=== PATIENT | male | born 1950 | race Caucasian/White ===

== ENCOUNTER 2021-05-24 22:10 | Inpatient (IN) ==
[2021-05-25] MEDS ORDERED: NS 0.9% 1000 ml BAG 1,000 ML IV ONE ×2 (01:00→02:43)
[2021-05-25] MEDS ORDERED: Levofloxacin 750 MG IVPREMIX 750 MG/150 ML BAG IVPB ONE (01:03)
[2021-05-25 02:09] LABS: Hematocrit 34 % (42-52); Hemoglobin 11.5 g/dL (14.0-18.0); Mean Corpuscular HGB Conc 34 g/dL (31-36); Mean Corpuscular Hemoglobin 32 pg (27-31); Mean Corpuscular Volume 94 fL (80-94); Mean Platelet Volume 8.1 fL (7.4-10.4); Platelet Count 178 10^3/uL (150-450); Red Blood Count 3.63 10^6 /uL (4.18-5.48); Red Cell Distribution Width 13 % (10-15); White Blood Count 14.1 10^3/uL (3.5-10.8)
[2021-05-25 02:14] LABS: Urine Appearance Cloudy; Urine Bilirubin Negative (Negative); Urine Blood 2+ (Negative); Urine Color Yellow; Urine Glucose Negative (Negative); Urine Ketones Negative (Negative); Urine Nitrite Negative (Negative); Urine Protein Negative (Negative); Urine Specific Gravity 1.009 (1.002-1.030); Urine Urobilinogen Negative (Negative)
[2021-05-25 02:16] LABS: Urine Bacteria 2+ (Absent); Urine Red Blood Cell 2+(6-10/hpf) (Absent); Urine White Blood Cell 3+(>20/hpf) (Absent)
[2021-05-25 02:26] LABS: ALT 49 U/L (7-52); AST 57 U/L (13-39); Albumin 3.3 g/dL (3.2-5.2); Albumin/Globulin Ratio 1.7 (1-3); Alkaline Phosphatase 61 U/L (35-149); Anion Gap 6 mmol/L (2-11); Blood Urea Nitrogen 23 mg/dL (6-24); C Reactive Protein 100.59 mg/L (<8.01); CO2 Carbon Dioxide 21 mmol/L (22-32); Calcium 7.9 mg/dL (8.6-10.3); Chloride 108 mmol/L (101-111); Creatine Kinase 134 U/L (10-223); Glucose 128 mg/dL (70-100); Potassium 3.8 mmol/L (3.5-5.0); Sodium 135 mmol/L (135-145); Total Protein 5.3 g/dL (6.4-8.9)
[2021-05-25 02:32] LABS: RBC Morphology Normal (Normal)
[2021-05-25 02:33] LABS: ABS Lymphocytes 0.6 10^3/ul (1.0-4.8); ABS Monocytes 0.9 10^3/ul (0-0.8); ABS Neutrophils 12.5 10^3/ul (1.5-7.7); Eosinophil % 0.1 %
[2021-05-25 02:42] LABS: Troponin I 0.03 ng/mL (<0.03)
[2021-05-25] MEDS ORDERED: Lactated Ringers 1000 ml BAG 1,000 ML IV ONE (03:50)
[2021-05-25] MEDS ORDERED: Lactated Ringers 1000 ml BAG 2,000 ML IV ONE (03:51)
[2021-05-25] MEDS ORDERED: Ondansetron 4 mg VIAL 2 MG/ML 2 ml VIAL IV PRN (04:24)
[2021-05-25] MEDS ORDERED: Iodixanol (CONTRAST) 320 MG/ML 100 ML SDV IV ONE (04:34)
[2021-05-25] MEDS ORDERED: cefTRIAXone 2 GM ADDV.VIAL 2 GM in NS 0.9% 100 ml BAG 100 ML IV SCH (05:00)
[2021-05-25] MEDS: Enoxaparin 40 MG/0.4 ML SYR SUBCUT SCH (05:43)
[2021-05-25 06:20] LABS: Urine Appearance Cloudy; Urine Bilirubin Negative (Negative); Urine Blood 2+ (Negative); Urine Color Yellow; Urine Glucose Negative (Negative); Urine Ketones Negative (Negative); Urine Nitrite Negative (Negative); Urine Protein Negative (Negative); Urine Specific Gravity 1.009 (1.002-1.030); Urine Urobilinogen Negative (Negative)
[2021-05-25 06:22] LABS: Urine Bacteria 2+ (Absent); Urine Red Blood Cell 2+(6-10/hpf) (Absent); Urine White Blood Cell 3+(>20/hpf) (Absent)
[2021-05-25 07:07] LABS: Rapid COVID-19 Molecular Undetected (Undetected)
[2021-05-25] MEDS ORDERED: NS 0.9% 500 ml BAG 500 ML IV ONE (11:23)
[2021-05-25] MEDS ORDERED: NS 0.9% 1000 ml BAG 1,000 ML IV SCH (11:30)
[2021-05-25] MEDS ORDERED: Norepinephrine 16MCG/ML IVPRE 4,000 MCG/250 ML BAG IV ONE (12:29)
[2021-05-25] MEDS ORDERED: Norepinephrine 16MCG/ML IVPRE 4,000 MCG/250 ML BAG IV SCH (13:00)
[2021-05-25] MEDS ORDERED: Piperacillin/Tazobac ADVAN 3.375 GM in NS 0.9% 100 ml BAG 100 ML IV ONE (16:51)
[2021-05-25] MEDS ORDERED: Zosyn per Pharmacy NOTE FOLLOW UP SCH (17:00)
[2021-05-25] MEDS ORDERED: Lactated Ringers 1000 ml BAG 1,000 ML IV SCH (17:00)
[2021-05-25] MEDS: ZOSYN 3.375 GM Q8H per EXTENDED INFUSION IV SCH (21:44)
[2021-05-26 04:48] LABS: ABS Lymphocytes 0.6 10^3/ul (1.0-4.8); ABS Monocytes 0.6 10^3/ul (0-0.8); ABS Neutrophils 5.2 10^3/ul (1.5-7.7); Eosinophil % 0.6 %; Hematocrit 37 % (42-52); Hemoglobin 12.6 g/dL (14.0-18.0); Lymphocyte % 9.4 %; Mean Corpuscular HGB Conc 34 g/dL (31-36); Mean Corpuscular Hemoglobin 32 pg (27-31); Mean Corpuscular Volume 96 fL (80-94); Mean Platelet Volume 8.4 fL (7.4-10.4); Platelet Count 167 10^3/uL (150-450); Red Blood Count 3.88 10^6 /uL (4.18-5.48); Red Cell Distribution Width 13 % (10-15); White Blood Count 6.5 10^3/uL (3.5-10.8)
[2021-05-26 05:05] LABS: Calcium 7.9 mg/dL (8.6-10.3); Magnesium 1.9 mg/dL (1.9-2.7); Phosphorus 2.7 mg/dL (2.5-5.0); Potassium 4.1 mmol/L (3.5-5.0); eGFR CKD-EPI 73.9 (>60)
[2021-05-26] MEDS: ZOSYN 3.375 GM Q8H per EXTENDED INFUSION IV SCH ×2 (05:16→14:06)
[2021-05-26] MEDS: Enoxaparin 40 MG/0.4 ML SYR SUBCUT SCH (08:22)
[2021-05-26] MEDS ORDERED: Furosemide 20 mg/2 ml IV VIAL IV SLOW PU ONE (13:10)
[2021-05-27] MEDS: ZOSYN 3.375 GM Q8H per EXTENDED INFUSION IV SCH ×2 (05:51)
[2021-05-27] MEDS ORDERED: diPHENhydraMINE 25 mg TAB PO ONE (09:34)
[2021-05-27] MEDS ORDERED: Clotrimazole 1% CREAM 45 GM TOPICAL PRN (09:34)
[2021-05-27] MEDS: Enoxaparin 40 MG/0.4 ML SYR SUBCUT SCH (09:56)
[2021-05-27] MEDS: cefTRIAXone 1 gm/50 mL NS BAG 1 GM/50 ML BAG IVPB SCH (09:57)
[2021-05-27] MEDS ORDERED: diPHENhydraMINE 25 mg TAB PO PRN (20:27)
[2021-05-28 05:12] LABS: ABS Basophils 0.1 10^3/ul (0-0.2); ABS Eosinophils 0.3 10^3/ul (0-0.6); ABS Lymphocytes 1.4 10^3/ul (1.0-4.8); ABS Monocytes 0.7 10^3/ul (0-0.8); ABS Neutrophils 3.9 10^3/ul (1.5-7.7); Hematocrit 35 % (42-52); Hemoglobin 11.9 g/dL (14.0-18.0); Lymphocyte % 22.3 %; Mean Corpuscular HGB Conc 34 g/dL (31-36); Mean Corpuscular Hemoglobin 32 pg (27-31); Mean Corpuscular Volume 94 fL (80-94); Mean Platelet Volume 8.4 fL (7.4-10.4); Platelet Count 230 10^3/uL (150-450); Red Blood Count 3.69 10^6 /uL (4.18-5.48); Red Cell Distribution Width 13 % (10-15); White Blood Count 6.4 10^3/uL (3.5-10.8)
[2021-05-28 05:26] LABS: Potassium 3.9 mmol/L (3.5-5.0); eGFR CKD-EPI 94.6 (>60)
[2021-05-28] MEDS: cefTRIAXone 1 gm/50 mL NS BAG 1 GM/50 ML BAG IVPB SCH (10:54)
[2021-05-28] MEDS: Enoxaparin 40 MG/0.4 ML SYR SUBCUT SCH (10:54)
[2021-05-28 12:17] VITALS: BP 117/65
== END 2021-05-28 11:55 | disposition home or self-care (01) | DRG 871 ==
LOC: ED 22:10 → SUATTDRO 05-25 04:24 → EDHOLD 05-25 04:24 → ICU 05-25 13:36 → MED 05-27 22:09
PROVIDERS: ADMIT Student in an Organized Health Care Education/Training Program; ATTEND Internal Medicine

== ENCOUNTER 2021-07-04 12:28 | Inpatient (IN) ==
[2021-07-04] MEDS ORDERED: Lactated Ringers 1000 ml BAG IV.FLUID IV ONE (13:51)
[2021-07-04 14:46] LABS: ABS Lymphocytes 0.2 10^3/ul (1.0-4.8); ABS Monocytes 0.2 10^3/ul (0-0.8); ABS Neutrophils 9.1 10^3/ul (1.5-7.7); Eosinophil % 0.2 %; Hematocrit 40 % (42-52); Hemoglobin 13.3 g/dL (14.0-18.0); Lymphocyte % 2.4 %; Mean Corpuscular HGB Conc 34 g/dL (31-36); Mean Corpuscular Hemoglobin 32 pg (27-31); Mean Corpuscular Volume 95 fL (80-94); Mean Platelet Volume 8.6 fL (7.4-10.4); Platelet Count 143 10^3/uL (150-450); Red Blood Count 4.15 10^6 /uL (4.18-5.48); Red Cell Distribution Width 14 % (10-15); White Blood Count 9.6 10^3/uL (3.5-10.8)
[2021-07-04 14:56] LABS: ALT 42 U/L (7-52); Albumin 3.8 g/dL (3.2-5.2); Albumin/Globulin Ratio 1.7 (1-3); Alkaline Phosphatase 70 U/L (35-149); Blood Urea Nitrogen 20 mg/dL (6-24); C Reactive Protein 90.05 mg/L (<8.01); CO2 Carbon Dioxide 21 mmol/L (22-32); Calcium 8.7 mg/dL (8.6-10.3); Chloride 103 mmol/L (101-111); Globulin 2.3 g/dL (2-4); Glucose 104 mg/dL (70-100); Sodium 133 mmol/L (135-145); Total Protein 6.1 g/dL (6.4-8.9); eGFR CKD-EPI 71.6 (>60)
[2021-07-04 15:00] LABS: Troponin I 0.03 ng/mL (<0.03)
[2021-07-04 15:01] LABS: AST 46 U/L (13-39); Activated Partial Thrombo Time 28.7 seconds (26.0-38.0); Anion Gap 9 mmol/L (2-11); INR 1.28 (0.86-1.15)
[2021-07-04 17:32] LABS: Urine Appearance Cloudy; Urine Bilirubin Negative (Negative); Urine Blood 2+ (Negative); Urine Color Amber; Urine Glucose Negative (Negative); Urine Ketones Negative (Negative); Urine Nitrite Positive (Negative); Urine Protein 1+(30 mg/dL) (Negative); Urine Specific Gravity 1.011 (1.002-1.030); Urine Urobilinogen Negative (Negative)
[2021-07-04] MEDS ORDERED: Sulfamethoxazole/Trimeth IV 0 MG in D5W 500 ml BAG 500 ML IVPB ONE (17:39)
[2021-07-04 18:12] LABS: Urine Bacteria 3+ (Absent); Urine Red Blood Cell 2+(6-10/hpf) (Absent); Urine Squamous Epithelial Cell Present (Absent); Urine White Blood Cell 3+(>20/hpf) (Absent)
[2021-07-04] MEDS ORDERED: TRIMETH IVPB ONE (19:22)
[2021-07-04] MEDS ORDERED: D5W IVPB ONE (19:22)
[2021-07-04] MEDS ORDERED: SULFAMETHOXAZOLE IVPB ONE (19:22)
[2021-07-04] MEDS ORDERED: Sulfamethoxazole/Trimeth IV 160 MG in D5W 250 ml BAG 250 ML IVPB ONE (20:30)
[2021-07-04] MEDS ORDERED: Lactated Ringers 1000 ml BAG 1,000 ML IV SCH (23:00)
[2021-07-04 23:15] LABS: Troponin I 0.05 ng/mL (<0.03)
[2021-07-04] MEDS ORDERED: Lactated Ringers 1000 ml BAG 1,000 ML IV ONE (23:44)
[2021-07-05] MEDS ORDERED: Lactated Ringers 1000 ml BAG 1,000 ML IV ONE ×2 (04:08→05:27)
[2021-07-05 04:09] LABS: Magnesium 1.7 mg/dL (1.9-2.7)
[2021-07-05] MEDS ORDERED: Magnesium Sulfate IV 3 GM in NS 0.9% 100 ml BAG 100 ML IVPB ONE (04:12)
[2021-07-05] MEDS: Enoxaparin 40 MG/0.4 ML SYR SUBCUT SCH (05:13)
[2021-07-05 06:24] LABS: Hematocrit 33 % (42-52); Hemoglobin 11.4 g/dL (14.0-18.0); Mean Corpuscular HGB Conc 34 g/dL (31-36); Mean Corpuscular Hemoglobin 32 pg (27-31); Mean Corpuscular Volume 94 fL (80-94); Mean Platelet Volume 9.3 fL (7.4-10.4); Platelet Count 90 10^3/uL (150-450); Red Blood Count 3.56 10^6 /uL (4.18-5.48); Red Cell Distribution Width 14 % (10-15); White Blood Count 7.6 10^3/uL (3.5-10.8)
[2021-07-05 06:46] LABS: Anion Gap 6 mmol/L (2-11); Blood Urea Nitrogen 19 mg/dL (6-24); CO2 Carbon Dioxide 23 mmol/L (22-32); Chloride 102 mmol/L (101-111); Glucose 142 mg/dL (70-100); Potassium 3.5 mmol/L (3.5-5.0); Sodium 131 mmol/L (135-145); eGFR CKD-EPI 74.7 (>60)
[2021-07-05 07:06] LABS: Troponin I 0.05 ng/mL (<0.03)
[2021-07-05] MEDS: cefTRIAXone 2 GM ADDV.VIAL 2 GM in NS 0.9% 100 ml BAG 100 ML IV SCH (08:03)
[2021-07-05] MEDS ORDERED: cefTRIAXone 1 gm/50 mL NS BAG 1 GM/50 ML BAG IVPB SCH (09:00)
[2021-07-05 09:35] LABS: Ferritin 247.1 ng/mL (24-336)
[2021-07-05 09:38] LABS: Folate 9.65 ng/mL (5.90-24.80)
[2021-07-05 09:39] LABS: Vitamin B12 257 pg/mL (180-914)
[2021-07-05] MEDS: Iohexol 300 (CONTRAST) 10 ML SDV IV ONE ×2 (16:02→16:03)
[2021-07-05] MEDS ORDERED: Furosemide 40 mg/4 ml IV VIAL IV SLOW PU ONE (20:39)
[2021-07-05] MEDS ORDERED: Albuterol/Ipratropium NEB.SOL (2.5/0.5 MG) 3 ML NEB.SOLN INH ONE (20:40)
[2021-07-05] MEDS ORDERED: Furosemide 40 mg/4 ml IV VIAL ONE (20:44)
[2021-07-05 21:17] LABS: Hematocrit 38 % (42-52); Hemoglobin 12.8 g/dL (14.0-18.0); Mean Corpuscular HGB Conc 34 g/dL (31-36); Mean Corpuscular Hemoglobin 32 pg (27-31); Mean Corpuscular Volume 94 fL (80-94); Mean Platelet Volume 9.1 fL (7.4-10.4); Platelet Count 117 10^3/uL (150-450); Red Blood Count 4.01 10^6 /uL (4.18-5.48); Red Cell Distribution Width 14 % (10-15); White Blood Count 8.1 10^3/uL (3.5-10.8)
[2021-07-05 21:39] LABS: Albumin 3.4 g/dL (3.2-5.2); Albumin/Globulin Ratio 1.7 (1-3); Calcium 8.2 mg/dL (8.6-10.3); Potassium 4.2 mmol/L (3.5-5.0); Total Bilirubin 1.2 mg/dL (0.2-1.0); Total Protein 5.4 g/dL (6.4-8.9); eGFR CKD-EPI 63.9 (>60)
[2021-07-05 21:46] LABS: ABS Lymphocytes 0.7 10^3/ul (1.0-4.8); ABS Monocytes 0.6 10^3/ul (0-0.8); ABS Neutrophils 6.7 10^3/ul (1.5-7.7); Lymphocyte % 9.1 %
[2021-07-05 21:58] LABS: PCO2 Arterial 22 mmHg (35-45); PO2 Arterial 80 mmHg (80-100)
[2021-07-05 22:17] LABS: Platelet Morphology Large; RBC Morphology Normal (Normal)
[2021-07-06] MEDS: Enoxaparin 40 MG/0.4 ML SYR SUBCUT SCH (05:50)
[2021-07-06 06:26] LABS: Hematocrit 37 % (42-52); Hemoglobin 12.4 g/dL (14.0-18.0); Mean Corpuscular HGB Conc 34 g/dL (31-36); Mean Corpuscular Hemoglobin 32 pg (27-31); Mean Corpuscular Volume 95 fL (80-94); Red Blood Count 3.85 10^6 /uL (4.18-5.48); Red Cell Distribution Width 14 % (10-15)
[2021-07-06 06:28] LABS: Calcium 7.7 mg/dL (8.6-10.3); Magnesium 2.1 mg/dL (1.9-2.7)
[2021-07-06 06:33] LABS: eGFR CKD-EPI 63.3 (>60)
[2021-07-06] MEDS: cefTRIAXone 2 GM ADDV.VIAL 2 GM in NS 0.9% 100 ml BAG 100 ML IV SCH (07:37)
[2021-07-06 07:48] LABS: ABS Eosinophils 0.1 10^3/ul (0-0.6); ABS Lymphocytes 0.6 10^3/ul (1.0-4.8); ABS Monocytes 0.6 10^3/ul (0-0.8); ABS Neutrophils 5.7 10^3/ul (1.5-7.7); Eosinophil % 0.8 %; Lymphocyte % 8.8 %; Mean Platelet Volume 10.1 fL (7.4-10.4); Nucleated Red Blood Cells % 0.1
[2021-07-06 08:43] LABS: Mean Platelet Volume 9.5 fL (7.4-10.4); Platelet Count 98 10^3/uL (150-450)
[2021-07-06 14:14] LABS: % Iron Saturation 5 % (14 - 50); Total Iron Binding Capacity 182 mcg/dL (250 - 400)
[2021-07-07 08:27] LABS: Calcium 7.9 mg/dL (8.6-10.3); Potassium 3.9 mmol/L (3.5-5.0); eGFR CKD-EPI 87.2 (>60)
[2021-07-07] MEDS: cefTRIAXone 2 GM ADDV.VIAL 2 GM in NS 0.9% 100 ml BAG 100 ML IV SCH (09:12)
[2021-07-07 12:25] VITALS: BP 115/67
== END 2021-07-07 12:00 | disposition home or self-care (01) | DRG 872 ==
LOC: ED 12:28 → SUATTDRO 22:22 → EDHOLD 22:22 → MEDTELE 07-05 04:37
PROVIDERS: ADMIT Student in an Organized Health Care Education/Training Program; ATTEND Internal Medicine

== ENCOUNTER 2023-12-04 06:08 | Observation (INO) ==
[~2023-12-04 06:08] MED LIST: Metoclopramide 5 MG/ML VIAL (10 mg) IV PRN; Naloxone 0.4 mg VIAL 0.4 mg/ml 1 ml VIAL IV PRN
[2023-12-04] MEDS ORDERED: Chlorhexidine MOUTHWASH 0.12% 15 ML UDC ONE (06:26)
[2023-12-04] MEDS ORDERED: Scopolamine 1 mg/72hr PATCH ONE (06:41)
[2023-12-04] MEDS ORDERED: ceFAZolin 2 GM PREMIX 2 GM/50 ML BAG ONE (06:42)
[2023-12-04] MEDS ORDERED: Lidocaine 1% w EPI 1:100,000 MDV 20 ML VIAL ONE (06:45)
[2023-12-04] MEDS ORDERED: Thrombin 5,000 UNITS(BOVINE) for Ultrasound Guided Pseudoaneursym ONE ×2 (06:45→08:44)
[2023-12-04] MEDS ORDERED: Gelfoam Sponge SIZE 100 SPONGE ONE (06:46)
[2023-12-04] MEDS ORDERED: ceFAZolin VIAL VIAL ONE (06:46)
[2023-12-04] MEDS ORDERED: Lidocaine 2% PF 5 ML VIAL ONE (06:47)
[2023-12-04] MEDS ORDERED: Propofol 10 MG/ML 20 ML BTL ONE (06:47)
[2023-12-04] MEDS ORDERED: Midazolam 2 mg/2 ml VIAL 1 mg/ml 2 ml VIAL (2 mg) ONE (06:48)
[2023-12-04] MEDS ORDERED: fentaNYL 100 mcg/2 ml 50 MCG/ML VIAL ONE ×3 (06:48→09:41)
[2023-12-04] MEDS ORDERED: Rocuronium 50 mg VIAL 10 mg/ml 5 ml VIAL (50 mg) ONE (06:48)
[2023-12-04 06:53] LABS: Rapid COVID-19 Molecular Undetected (Undetected)
[2023-12-04] MEDS ORDERED: Dexamethasone IV 4 MG/ML VIAL 1 ml VIAL ONE (07:42)
[2023-12-04] MEDS ORDERED: Ondansetron 4 mg VIAL 2 MG/ML 2 ml VIAL ONE ×2 (07:42→09:45)
[2023-12-04] MEDS ORDERED: Phenylephrine 40 mcg/mL 10mL (400mcg) SYRINGE ONE (07:55)
[2023-12-04] MEDS ORDERED: Benzocaine/Menthol LOZ MT PRN (09:36)
[2023-12-04] MEDS ORDERED: Dextran 70/Hypromellose Tears Eye Drops 15 ml BTL (for Artificials Tears) BOTH EYES PRN (09:36)
[2023-12-04] MEDS ORDERED: HYDROcodone/ACETAMIN 5/325 mg TAB PO PRN ×2 (09:36)
[2023-12-04] MEDS ORDERED: Senna TAB 8.6 mg TAB PO PRN (09:36)
[2023-12-04] MEDS ORDERED: Calcium Carb (TUMS) 500 mg CHEW TAB PO PRN (09:36)
[2023-12-04] MEDS ORDERED: Ondansetron 4 mg VIAL 2 MG/ML 2 ml VIAL IV PRN (09:36)
[2023-12-04] MEDS ORDERED: Phenol 1.4% Throat Spray BTL MT PRN (09:36)
[2023-12-04] MEDS ORDERED: Morphine 2 MG/ML SYRINGE IV PRN (09:36)
[2023-12-04] MEDS: Ondansetron 4 mg VIAL 2 MG/ML 2 ml VIAL IV PRN (09:47)
[2023-12-04] MEDS: fentaNYL 100 mcg/2 ml 50 MCG/ML VIAL IV PRN (09:48)
[2023-12-04] MEDS: Lactated Ringers 1000 ml BAG 1,000 ML IV SCH ×2 (11:10→11:13)
[2023-12-04] MEDS: Scopolamine 1 mg/72hr PATCH TRANSDERM ONE (11:13)
[2023-12-04] MEDS: Buffered Lidocaine 1% SYRIN 1 ml INTRADERM ONE (11:13)
[2023-12-05 10:00] VITALS: BP 107/59
== END 2023-12-05 15:19 | disposition home or self-care (01) ==
LOC: OR 06:08 → SSU 06:08
PROVIDERS: ADMIT Neurological Surgery; ATTEND Neurological Surgery